=== PATIENT | male | born 1985 | race Caucasian/White ===

== ENCOUNTER 2019-03-06 22:49 | Emergency (ER) | payer BC ==
[~2019-03-06] VITALS: Ht 180.3 cm; Wt 63.5 kg
[~2019-03-06 22:49] MED LIST: CIPR500 PO; CYCL10 PO; HYDACE5 PO; OXYACE5T PO; RXCEPH500 PO; TAMS.4ER PO; TRAM50 PO
[2019-03-06] MEDS ORDERED: CEPH500 PO (23:49)
[2019-03-06] MEDS ORDERED: Bactrim Ds Tab1 EACH PO (23:49)
== END 2019-03-06 23:55 | disposition home or self-care (01) ==
LOC: ER 22:49
DX: L03.113 Cellulitis of right upper limb (principal); Z88.1 Allergy status to other antibiotic agents; Z88.8 Allergy status to other drugs, medicaments and biological substances; F17.210 Nicotine dependence, cigarettes, uncomplicated
CPT/HCPCS: 99283

== ENCOUNTER 2019-04-02 09:59 | Emergency (ER) | payer BC, OTHER ==
[~2019-04-02] VITALS: Ht 180.3 cm; Wt 56.7 kg
[~2019-04-02 09:59] MED LIST changes: +Bactrim Ds Tab1 EACH PO; +CEPH500 PO
[2019-04-02] MEDS ORDERED: NARCAN4 MG (11:25)
== END 2019-04-02 11:32 | disposition home or self-care (01) ==
LOC: ER 09:59
DX: T40.1X1A Poisoning by heroin, accidental (unintentional), initial encounter (principal); F17.210 Nicotine dependence, cigarettes, uncomplicated; Z88.0 Allergy status to penicillin; Z88.1 Allergy status to other antibiotic agents; Z88.8 Allergy status to other drugs, medicaments and biological substances
CPT/HCPCS: 99284

== ENCOUNTER 2019-05-21 14:09 | Inpatient (IN) | payer BC, OTHER ==
[~2019-05-21] VITALS: Ht 182.9 cm; Wt 63.4 kg
[~2019-05-21 14:09] MED LIST changes: +NARCAN4 MG
[2019-05-21 14:32] LABS: BASOPHILS ABSOLUTE AUTO 0.01 K/mm3 (0.00-0.23); BASOPHILS PERCENT AUTO 0 % (0-2); EOSINOPHILS PERCENT AUTO 0 % (0-6); Hematocrit 44.3 % (37.0-53.0); Hemoglobin 14.4 g/dL (13.5-17.5); Mean Corpuscular HGB 29.2 pg (26.0-34.0); Mean Corpuscular HGB Conc 32.5 g/dL (31.5-36.5); Mean Corpuscular Volume 90 fL (80-100); Mean Platelet Volume 9.2 fL (9.1-12.4); Platelet Count 362 K/mm3 (150-400); RDW Coefficient Variation 13.5 % (11.7-14.2); Red Blood Cell Count 4.93 M/mm3 (4.30-5.90); White Blood Cell Count 4.69 K/mm3 (4.00-11.30)
[2019-05-21 14:35] LABS: IMMATURE GRAN ABSOLUTE AUTO 0.01 K/mm3 (0.00-0.10); IMMATURE GRAN PERCENT AUTO 0 % (0-1); LYMPHOCYTES ABSOLUTE AUTO 0.92 K/mm3 (0.84-5.20); LYMPHOCYTES PERCENT AUTO 20 % (21-46); MONOCYTES ABSOLUTE AUTO 0.02 K/mm3 (0.16-1.47); MONOCYTES PERCENT AUTO 0 % (4-13); NEUTROPHILS ABSOLUTE AUTO 3.73 K/mm3 (1.96-9.15); NEUTROPHILS PERCENT AUTO 80 % (41-73)
[2019-05-21 14:57] LABS: Ethanol (Alcohol), Blood, Med <3 mg/dL; Troponin I <0.015 ng/mL (0.000-0.040)
[2019-05-21 15:00] LABS: Alanine Aminotransfer (ALT/SGP 17 U/L (12-78); Albumin, Blood 3.7 g/dL (3.4-5.0); Alk Phos 84 U/L (50-136); Anion Gap 9 mmol/L (6-16); Aspartate Aminotrans (AST/SGOT 24 U/L (12-37); Bilirubin, Total 0.7 mg/dL (0.1-1.0); Blood Urea Nitrogen 11 mg/dL (8-24); Bun/Creatinine Ratio 14.2 (12.0-20.0); CO2, Blood 26 mmol/L (21-32); Calcium, Blood 8.9 mg/dL (8.5-10.1); Chloride, Blood 105 mmol/L (98-108); Creatinine, Blood 0.77 mg/dL (0.60-1.20); Globulin, Blood 3.6 g/dL (2.2-4.0); Glomerular Filtration Rate >60 (60-); Glucose, Blood 119 mg/dL (70-99); Potassium, Blood 3.5 mmol/L (3.5-5.5); Sodium, Blood 140 mmol/L (136-145); Total Protein, Blood 7.3 g/dL (6.4-8.2)
[2019-05-21 23:23] LABS: Source, Urine Voided
[2019-05-21 23:26] LABS: Bilirubin, Urine Neg (Neg); Blood, Urine Neg (Neg); Glucose Qualitative, Urine Neg (Neg); Ketones, Urine Neg (Neg); Leukocyte Esterase, Urine Neg (Neg); Nitrite, Urine Neg (Neg); Protein, Urine Neg (Neg); Specific Gravity, Urine 1.005 (1.003-1.022); Urobilinogen, Urine NORM (Normal)
[2019-05-21 23:30] LABS: Appearance, Urine Clear (Clear); Color, Urine Yellow (P-Yellow)
[2019-05-21 23:37] LABS: U Amphetamine Screen DETECTED; U Barbituate Screen Not Detected; U Benzodiazapine Screen DETECTED; U Buprenorphine Screen Not Detected; U Cannabinoids Screen Not Detected; U Cocaine Screen Not Detected; U Methadone Screen Not Detected; U Methamphetamine Screen Not Detected; U Opiates Screen DETECTED; U Oxycodone Screen Not Detected; U Phencyclidine Screen Not Detected; U Propoxyphene Screen Not Detected
[2019-05-22 04:46] LABS: BASOPHILS ABSOLUTE AUTO 0.07 K/mm3 (0.00-0.23); BASOPHILS PERCENT AUTO 0 % (0-2); Hemoglobin 12.4 g/dL (13.5-17.5); LYMPHOCYTES ABSOLUTE AUTO 1.24 K/mm3 (0.84-5.20); LYMPHOCYTES PERCENT AUTO 4 % (21-46); MONOCYTES ABSOLUTE AUTO 1.24 K/mm3 (0.16-1.47); MONOCYTES PERCENT AUTO 4 % (4-13); Mean Corpuscular HGB 29.2 pg (26.0-34.0); Mean Corpuscular HGB Conc 33.5 g/dL (31.5-36.5); Mean Platelet Volume 10.1 fL (9.1-12.4); Platelet Count 309 K/mm3 (150-400); RDW Coefficient Variation 14.3 % (11.7-14.2); RDW Standard Deviation 45.5 fL (35.1-46.3); Red Blood Cell Count 4.24 M/mm3 (4.30-5.90); White Blood Cell Count 34.03 K/mm3 (4.00-11.30)
[2019-05-22 04:56] LABS: EOSINOPHILS ABSOLUTE AUTO 0.01 K/mm3 (0.00-0.68); EOSINOPHILS PERCENT AUTO 0 % (0-6); IMMATURE GRAN ABSOLUTE AUTO 1.44 K/mm3 (0.00-0.10); IMMATURE GRAN PERCENT AUTO 4 % (0-1); Mean Corpuscular Volume 87 fL (80-100); NEUTROPHILS ABSOLUTE AUTO 30.03 K/mm3 (1.96-9.15); NEUTROPHILS PERCENT AUTO 88 % (41-73)
[2019-05-22 05:01] LABS: Anion Gap 6 mmol/L (6-16); Blood Urea Nitrogen 9 mg/dL (8-24); Bun/Creatinine Ratio 12.6 (12.0-20.0); CO2, Blood 26 mmol/L (21-32); Chloride, Blood 110 mmol/L (98-108); Creatinine, Blood 0.71 mg/dL (0.60-1.20); Glomerular Filtration Rate >60 (60-); Glucose, Blood 112 mg/dL (70-99); Potassium, Blood 3.7 mmol/L (3.5-5.5); Sodium, Blood 142 mmol/L (136-145)
--- NOTE | 2019-05-22 05:38 | NUR ---
SHIFT SUMMARY PT ADMITTED FOR FEBRILE ILLNESS, WAS GIVEN IV ATIVAN IN THE ER FOR AGITATION SO PT SLEPT MUCH OF THE SHIFT. UNABLE TO DO ADMISSION HISTORY WITH PT OR GO OVER ANY ALLERGIES OR MED REC PT IS VERY SLEEPY AND IS IRRITABLE WHEN TRYING TO ASK ANY QUESTIONS. HAS HAD IVF'S GOING WITHOUT DIFFICULTY AND HAS BEEN AFEBRILE DURING THE NIGHT. WILL CONTINUE TO MONITOR AND ATTEMPT TO DO REMAINING ADMISSION IF PT ABLE TO DO SO.
--- NOTE | 2019-05-22 10:02 | NUR ---
PT REQUESTING TO GO OUTSIDE AND SMOKE. PT SPOKE TO PT ABOUT BEING ON CONT IVF AND TELEMETRY THAT HE SHOULD NOT GO OUT AND SMOKE. I OFFERERED NICOTINE PATCH BUT PT REFUSED, STATES THEY MAKE HIM SICK. PT CONT TO REQUEST TO GO OUTSIDE. PT OUTSIDE AT THIS TIME TO SMOKE.
--- NOTE | 2019-05-22 11:48 | NUR ---
PT PARENTS ARE AT BEDSIDE. PT VERY ANXIOUS AND RESTLESS LYING IN BED, CUSSING AT TIMES. MOTHER HELPER ALSO CALLED PREVISOULY AND REPORTED BY TACHY IN THE 110'S WITH OCC INTO 140'S AT TIMES. PT HAS REPORTED HE TAKES HEROIN AND METH ON OCC WITH HIS LAST DOSE A COUPLE DAYS AGO. SPOKE WITH DR CLOUD WHO HAS ORDERED ATIVAN 1MG IV Q6P AND D/C TELE AT THIS TIME. WILL CONT TO MONITOR.
--- NOTE | 2019-05-22 17:28 | NUR ---
SHIFT SUMMARY- PT A/OX4, INDEP UP IN ROOM AND OUTSIDE TO SMOKE. PT DENIES ANY PAIN T/O THE DAY. PT ANXIOUS AND RESTLESS AT TIMES, PRN ATIVAN GIVEN X1. LS CLEAR, ON RA. PT RUNNING ST IN THE 110'S OCC INCREASES, TELE DC'D. MRSA CLEARANCE SWABS SENT. NEW IV PLACED, IVF DC'D AFTER CURRENT BAG RUNNING. NO FEVERS THIS SHIFT. NO OTHER ACUTE CHANGES THIS SHIFT.
--- NOTE | 2019-05-22 21:42 | NUR ---
PT. REQUESTING TO GO OUTSIDE TO SMOKE. REFUSED NICOTINE PATCH. DISCUSSED WITH PT. PRECAUTIONS, PT. ON CONT FLUIDS. PT. DECIDED TO GO OUT WITH VISITORS WHO WERE AT BEDSIDE.
--- NOTE | 2019-05-23 04:17 | NUR ---
SHIFT SUMMARY- PT. A&O, INDEPENDENTLY AMBULATES IN ROOM AND GOES OUTSIDE TO SMOKE. DENIED ANY PAIN OR DISCOMFORT T/O THE SHIFT. AFEBRILE AND NO SX'S OF WITHDRAWAL. ATIVAN GIVEN ONCE DURING SHIFT. IV FLUIDS DISCONTINUED. PT. SLEEPING QUIETLY IN BED, NO APPARENT DISTRESS NOTED. CALL LIGHT WITHIN REACH AND SIDE RAILS UP X2. WILL CONT TO MONITOR.
[2019-05-23 14:06] LABS: BASOPHILS ABSOLUTE AUTO 0.05 K/mm3 (0.00-0.23); BASOPHILS PERCENT AUTO 0 % (0-2); EOSINOPHILS ABSOLUTE AUTO 0.04 K/mm3 (0.00-0.68); EOSINOPHILS PERCENT AUTO 0 % (0-6); Hemoglobin 12.3 g/dL (13.5-17.5); IMMATURE GRAN ABSOLUTE AUTO 0.14 K/mm3 (0.00-0.10); IMMATURE GRAN PERCENT AUTO 1 % (0-1); LYMPHOCYTES ABSOLUTE AUTO 3.16 K/mm3 (0.84-5.20); LYMPHOCYTES PERCENT AUTO 16 % (21-46); MONOCYTES ABSOLUTE AUTO 1.26 K/mm3 (0.16-1.47); MONOCYTES PERCENT AUTO 6 % (4-13); Mean Corpuscular HGB 29.4 pg (26.0-34.0); Mean Corpuscular HGB Conc 33.2 g/dL (31.5-36.5); Mean Corpuscular Volume 89 fL (80-100); Mean Platelet Volume 10.6 fL (9.1-12.4); NEUTROPHILS ABSOLUTE AUTO 15.06 K/mm3 (1.96-9.15); NEUTROPHILS PERCENT AUTO 76 % (41-73); Platelet Count 337 K/mm3 (150-400); RDW Coefficient Variation 14.2 % (11.7-14.2); Red Blood Cell Count 4.18 M/mm3 (4.30-5.90); White Blood Cell Count 19.71 K/mm3 (4.00-11.30)
--- NOTE | 2019-05-23 15:53 | NUR ---
VEW 4 VEW SCORE OF 4, BP 92/59 AND HR OF 121. T/C TO DR KC, ORDERS FOR FLUID BOLUS OF 1 LITER NS FOLLOWED BY NS AT 150/HR RECEIVED. WILL MONITOR.
--- NOTE | 2019-05-23 18:10 | NUR ---
PT HAD A BP OF 92/59 WITH JOSE ANGEL OF 4. T/C TO DR KC WITH ORDERS FOR NS BOLUS AND MAINT IVF OF NS AT 150 PER HOUR. FOLLOW UP BP S/P BOLUS WAS 134/89. WILL CONTINUE TO MONITOR AND REPORT TO ONCOMING RN
[2019-05-24 04:35] LABS: BASOPHILS ABSOLUTE AUTO 0.05 K/mm3 (0.00-0.23); BASOPHILS PERCENT AUTO 0 % (0-2); EOSINOPHILS PERCENT AUTO 2 % (0-6); Hematocrit 36.8 % (37.0-53.0); Hemoglobin 12.1 g/dL (13.5-17.5); IMMATURE GRAN ABSOLUTE AUTO 0.05 K/mm3 (0.00-0.10); IMMATURE GRAN PERCENT AUTO 0 % (0-1); LYMPHOCYTES ABSOLUTE AUTO 3.73 K/mm3 (0.84-5.20); LYMPHOCYTES PERCENT AUTO 27 % (21-46); MONOCYTES ABSOLUTE AUTO 0.81 K/mm3 (0.16-1.47); MONOCYTES PERCENT AUTO 6 % (4-13); Mean Corpuscular HGB 30.1 pg (26.0-34.0); Mean Corpuscular HGB Conc 32.9 g/dL (31.5-36.5); NEUTROPHILS ABSOLUTE AUTO 8.94 K/mm3 (1.96-9.15); NEUTROPHILS PERCENT AUTO 65 % (41-73); Platelet Count 320 K/mm3 (150-400); RDW Coefficient Variation 14.2 % (11.7-14.2); RDW Standard Deviation 48.1 fL (35.1-46.3); Red Blood Cell Count 4.02 M/mm3 (4.30-5.90); White Blood Cell Count 13.78 K/mm3 (4.00-11.30)
[2019-05-24 04:36] LABS: Mean Corpuscular Volume 92 fL (80-100)
--- NOTE | 2019-05-24 04:39 | NUR ---
SHIFT SUMMARY- NO ACUTE CHANGES OEVERNIGHT. PT. SLEPT WELL T/O THE NIGHT, NO APPARENT DISTRESS NOTED. DENIED ANY NEEDS T/O SHIFT. HR WNL. ATIVAN GIVEN PER EMAR X1. IV FLUIDS RUNNING. CALL LIGHT WITHIN REACH AND SIDE RAILS UP X2. WILL CONT TO MONITOR.
[2019-05-24 04:54] LABS: Alanine Aminotransfer (ALT/SGP 23 U/L (12-78); Albumin, Blood 2.7 g/dL (3.4-5.0); Albumin/Globulin Ratio 0.8 (0.8-1.8); Alk Phos 63 U/L (50-136); Anion Gap 4 mmol/L (6-16); Aspartate Aminotrans (AST/SGOT 14 U/L (12-37); Bilirubin, Total 0.5 mg/dL (0.1-1.0); Blood Urea Nitrogen 8 mg/dL (8-24); Bun/Creatinine Ratio 12.6 (12.0-20.0); CO2, Blood 28 mmol/L (21-32); Calcium, Blood 8.2 mg/dL (8.5-10.1); Chloride, Blood 113 mmol/L (98-108); Creatinine, Blood 0.64 mg/dL (0.60-1.20); Globulin, Blood 3.3 g/dL (2.2-4.0); Glomerular Filtration Rate >60 (60-); Glucose, Blood 106 mg/dL (70-99); Potassium, Blood 3.9 mmol/L (3.5-5.5); Sodium, Blood 145 mmol/L (136-145)
[2019-05-24] MEDS ORDERED: ACET500 PO (12:11)
[2019-05-24] MEDS ORDERED: Vsl#3 Capsule1 EACH PO (12:11)
[2019-05-24] MEDS ORDERED: LEVOFLOXACIN750 MG PO (12:12)
--- NOTE | 2019-05-24 13:38 | NUR ---
DISCHARGE DISCHARGE INSTRUCTIONS, MEDICATION LIST AND FOLLOW UP APPOINTMENT REVIEWED WITH PT. QUESTIONS/CONCERNS ANSWERED. PT VERBALLY INDICATED UNDERSTANDING OF ALL INSTRUCTIONS RECEIVED.
== END 2019-05-24 12:55 | disposition home or self-care (01) | DRG 872 ==
LOC: ER 14:09 → MEDS 14:10
PROVIDERS: Emergency Medicine; Internal Medicine; ADMIT Internal Medicine
DX: A41.9 Sepsis, unspecified organism (principal); R65.20 Severe sepsis without septic shock; R50.81 Fever presenting with conditions classified elsewhere; F17.200 Nicotine dependence, unspecified, uncomplicated; R63.6 Underweight; Z68.1 Body mass index [BMI] 19.9 or less, adult; Z86.14 Personal history of Methicillin resistant Staphylococcus aureus infection; Z88.0 Allergy status to penicillin; Z88.8 Allergy status to other drugs, medicaments and biological substances
CPT/HCPCS: 36415; 71046; 80048; 80053; 81003; 83605; 84145; 84484; 85025; 87040; 87081; 93005; 93010; 96361; 96365; 96366; 96367; 96368; 96375; 96376; 99285-25; G0378; G0480; J1885; J2020; J2060; J2185; J7030; J7120

== ENCOUNTER 2019-10-30 10:43 | Emergency (ER) | payer OTHER ==
[~2019-10-30] VITALS: Ht 182.9 cm; Wt 69.7 kg
[~2019-10-30 10:43] MED LIST changes: +ACET500 PO; +LEVOFLOXACIN750 MG PO; +Vsl#3 Capsule1 EACH PO
== END 2019-10-30 12:05 | disposition home or self-care (01) ==
LOC: ER 10:43
DX: B34.9 Viral infection, unspecified (principal); F17.210 Nicotine dependence, cigarettes, uncomplicated; Z88.1 Allergy status to other antibiotic agents
CPT/HCPCS: 99283

== ENCOUNTER 2020-09-09 13:08 | Emergency (ER) | payer OTHER ==
[~2020-09-09] VITALS: Ht 182.9 cm; Wt 65.8 kg
[2020-09-09] MEDS ORDERED: NALOXONE HC1 MG/1 ML IM (14:28)
== END 2020-09-09 14:41 | disposition home or self-care (01) ==
LOC: ER 13:08
DX: R40.4 Transient alteration of awareness (principal); F11.90 Opioid use, unspecified, uncomplicated; F17.210 Nicotine dependence, cigarettes, uncomplicated; Z88.1 Allergy status to other antibiotic agents
CPT/HCPCS: 93005; 93010; 99284-25; J2310

== ENCOUNTER 2020-11-17 14:44 | Emergency (ER) | payer OTHER ==
[~2020-11-17] VITALS: Ht 180.3 cm; Wt 59.0 kg
[~2020-11-17 14:44] MED LIST changes: +NALOXONE HC1 MG/1 ML IM
[2020-11-17] MEDS ORDERED: CEPH500 PO (16:33)
== END 2020-11-17 16:44 | disposition home or self-care (01) ==
LOC: ER 14:44
DX: L02.414 Cutaneous abscess of left upper limb (principal); L03.114 Cellulitis of left upper limb; Z88.1 Allergy status to other antibiotic agents; Z79.899 Other long term (current) drug therapy
CPT/HCPCS: 10061; 99282-25

== ENCOUNTER 2021-03-19 10:20 | Emergency (ER) | payer OTHER ==
[~2021-03-19] VITALS: Ht 180.3 cm; Wt 70.3 kg
[2021-03-19] MEDS ORDERED: CEPH500 PO (12:41)
[2021-03-19] MEDS ORDERED: Bactrim Ds Tab1 EACH PO (12:41)
== END 2021-03-19 13:55 | disposition home or self-care (01) ==
LOC: ER 10:20
DX: L02.413 Cutaneous abscess of right upper limb (principal); Z88.1 Allergy status to other antibiotic agents; Z79.899 Other long term (current) drug therapy; Z87.891 Personal history of nicotine dependence
CPT/HCPCS: 10060; 99282-25

== ENCOUNTER 2022-02-02 18:15 | Emergency (ER) | payer OTHER | END 2022-02-03 18:51 | disposition left against medical advice (07) | LOC: ER 18:15 | DX: Z53.21 Procedure and treatment not carried out due to patient leaving prior to being seen by health care provider (principal) ==

== ENCOUNTER 2024-12-22 17:44 | Emergency (ER) | payer OTHER ==
[~2024-12-22] VITALS: Ht 182.9 cm; Wt 65.8 kg
[~2024-12-22 17:44] MED LIST changes: +IBUP800 PO
[2024-12-22] MEDS ORDERED: RX Prepack 2 Sprays Naloxone HCL 4 MG/SPRAY UD ONE ×2 (18:00→23:00)
[2024-12-22] MEDS ORDERED: BUPRENORPHINE-1 EACH SL (18:03)
[2024-12-22 23:00] VITALS: BP 120/82
== END 2024-12-22 23:09 | disposition home or self-care (01) ==
LOC: ER 17:44
DX: T40.411A Poisoning by fentanyl or fentanyl analogs, accidental (unintentional), initial encounter (principal); Z59.89 Other problems related to housing and economic circumstances; Z79.1 Long term (current) use of non-steroidal anti-inflammatories (NSAID)
CPT/HCPCS: 93005; 93010; 99284-25; A9270

== ENCOUNTER 2025-08-24 07:07 | Emergency (ER) | payer OTHER ==
[~2025-08-24] VITALS: Ht 180.3 cm; Wt 72.6 kg
[~2025-08-24 07:07] MED LIST changes: +BUPRENORPHINE-1 EACH SL
[2025-08-24 07:54] VITALS: BP 122/77
[2025-08-24] MEDS ORDERED: SUBOXONE 8 MG-1 EACH SL (09:09)
== END 2025-08-24 09:11 | disposition home or self-care (01) ==
LOC: ER 07:07
DX: F19.10 Other psychoactive substance abuse, uncomplicated (principal); Z76.0 Encounter for issue of repeat prescription; Z79.899 Other long term (current) drug therapy; Z87.891 Personal history of nicotine dependence; Z88.1 Allergy status to other antibiotic agents
CPT/HCPCS: 99281